=== PATIENT | male | born 1990 | race American Indian/Alaskan Native ===

== ENCOUNTER 2021-07-07 00:06 | Inpatient (IN) | payer OTHER, BC ==
[2021-07-07] MEDS ORDERED: SODIUM CHLORIDE 0.9% 1000 ML 1,000 ML IV ONE ×3 (00:32→06:03)
[2021-07-07] MEDS ORDERED: ACETAMINOPHEN 500 MG TAB PO ONE (00:59)
--- NOTE | 2021-07-07 01:03 | Emergency Department Report ---
ED General Adult HPI - General Chief complaint: Fever Stated complaint: VOMITING Time Seen by Provider: 07/07/21 00:58 Source: patient Mode of arrival: Ambulatory Limitations: No Limitations - History of Present Illness Initial comments: Patient is 31 years old male with no significant past medical history. Patient presented to the ER complaining of fever, body ache and vomiting for the last 2 to 3 days. Patient stated that she was seen at another hospital and diagnosed with infectious mononucleosis. Patient stated that he tested negative for Covid 3 days ago. Patient denied any chest pain or shortness of breath or cough. - Related Data Previous Rx's Medication Instructions Recorded Last Taken Type Azithromycin [Zithromax Z-KYLE] 250 mg PO DAILY 1 Days tab 07/07/21 Unknown Rx Ondansetron [Zofran Odt] 4 mg PO Q8HR PRN #14 tab.rapdis 07/07/21 Unknown Rx Allergies Allergy/AdvReac Type Severity Reaction Status Date / Time No Known Allergies Allergy Unverified 07/07/21 00:38 ED Review of Systems ROS: Stated complaint: VOMITING Other details as noted in HPI Comment: All other systems reviewed and negative Constitutional: chills, fever Respiratory: denies: cough, shortness of breath, SOB with exertion, SOB at rest Cardiovascular: denies: chest pain, palpitations Gastrointestinal: nausea, vomiting. denies: abdominal pain, diarrhea, constipation, hematemesis, melena, hematochezia Musculoskeletal: denies: back pain Neurological: denies: headache, weakness, numbness ED Past Medical Hx - Past Medical History Previous Medical History?: No - Surgical History Past Surgical History?: No - Medications Home Medications: Home Medications Medication Instructions Recorded Confirmed Last Taken Type Azithromycin [Zithromax Z-KYLE] 250 mg PO DAILY 1 Days tab 07/07/21 Unknown Rx Ondansetron [Zofran Odt] 4 mg PO Q8HR PRN #14 tab.rapdis 07/07/21 Unknown Rx ED Physical Exam - General Limitations: No Limitations General appearance: alert, in no apparent distress - Head Head exam: Present: atraumatic, normocephalic, normal inspection - Eye Eye exam: Present: normal appearance - ENT ENT exam: Present: mucous membranes dry - Neck Neck exam: Present: normal inspection, full ROM. Absent: tenderness, meningismus - Respiratory Respiratory exam: Present: normal lung sounds bilaterally - Cardiovascular Cardiovascular Exam: Present: tachycardia - GI/Abdominal GI/Abdominal exam: Present: soft, normal bowel sounds. Absent: distended, tenderness, guarding, rebound, rigid, organomegaly, mass, bruit, pulsatile mass, hernia - Extremities Exam Extremities exam: Present: normal inspection, full ROM, normal capillary refill. Absent: tenderness, pedal edema, joint swelling, calf tenderness - Back Exam Back exam: Present: normal inspection, full ROM. Absent: CVA tenderness (R), CVA tenderness (L) - Neurological Exam Neurological exam: Present: alert, oriented X3, CN II-XII intact - Psychiatric Psychiatric exam: Present: normal mood - Skin Skin exam: Present: warm, intact, normal color ED Course Vital Signs 07/07/21 07/07/21 07/07/21 00:17 01:23 01:51 Temperature 102.4 F H 101.2 F H 101.1 F H Pulse Rate 144 H 129 H 129 H Respiratory 18 31 H 25 H Rate Blood Pressure 131/75 Blood Pressure 127/73 114/86 [Right] O2 Sat by Pulse 96 97 97 Oximetry 07/07/21 07/07/21 07/07/21 02:16 03:19 05:06 Temperature 100.4 F H 99.1 F 100 F H Pulse Rate 127 H 127 H 128 H Respiratory 25 H 28 H 31 H Rate Blood Pressure Blood Pressure 118/70 103/81 122/71 [Right] O2 Sat by Pulse 100 99 98 Oximetry ED Medical Decision Making - Lab Data Result diagrams: 07/07/21 01:08 07/07/21 01:08 - EKG Data -: EKG Interpreted by Or EKG shows normal: sinus rhythm Rate: tachycardia - EKG Data Interpretation: no acute changes - Radiology Data Radiology results: report reviewed - Medical Decision Making Patient is 31 years old male with no significant past medical history. Patient presented to the ER complaining of fever, body ache and vomiting for the last 2 to 3 days. Patient stated that she was seen at another hospital and diagnosed with infectious mononucleosis. Patient stated that he tested negative for Covid 3 days ago. Patient denied any chest pain or shortness of breath or cough. Labs reviewed and showed slight elevated lactic acid. Patient received normal saline. Chest x-ray is unremarkable however CT abdomen and pelvis showed bilateral lower lobe groundglass appearance consistent with pneumonia most likely Covid. Oxygen saturation dropped to 91% with short walk. Patient respiratory rate is 35 breaths/min. Patient given Rocephin, Zithromax and Decadron. I discussed the patient with Dr. Ward, he agreed to admit the patient to medical service for further management. Critical Care Time: Yes Critical care time in (mins) excluding proc time.: 30 Critical care attestation.: If time is entered above; I have spent that time in minutes in the direct care of this critically ill patient, excluding procedure time. ED Disposition Clinical Impression: Fever, Bilateral pneumonia, Suspected COVID-19 virus infection, Acute respiratory failure with hypoxia Disposition: ADMITTED INPATIENT Is pt being admited?: Yes Condition: Stable Instructions: COVID-19, Community-Acquired Pneumonia, Adult, Bacterial Pneumonia (ED) Prescriptions: Azithromycin [Zithromax Z-KYLE] 250 mg PO DAILY 1 Days tab Ondansetron [Zofran Odt] 4 mg PO Q8HR PRN #14 tab.rapdis PRN Reason: Nausea And Vomiting Referrals: PRIMARY CARE, [Referring] - 3-5 Days
--- NOTE | 2021-07-07 01:22 | XRay Report ---
CHEST 2 VIEWS INDICATION / CLINICAL INFORMATION: fever sob. FINDINGS: SUPPORT DEVICES: None. HEART / MEDIASTINUM: No significant abnormality. LUNGS / PLEURA: No significant pulmonary or pleural abnormality. No pneumothorax. ADDITIONAL FINDINGS: No significant additional findings. IMPRESSION: 1. No acute findings. Signer Name: Lencho Bills MD Signed: 07/07/2021 1:17 AM Workstation Name: [id number]
[2021-07-07] MEDS ORDERED: IBUPROFEN 800 MG TAB PO ONE (01:29)
[2021-07-07 01:36] LABS: Hematocrit 30.9 % (35.5-45.6); Hemoglobin 10.8 gm/dl (11.8-15.2); Mean Corpuscular HGB Conc 35 % (32-34); Mean Corpuscular Volume 86 fl (84-94); Platelet Count 162 K/mm3 (140-440); Red Blood Count 3.58 M/mm3 (3.65-5.03); Red Cell Distribution Width 13.4 % (13.2-15.2)
[2021-07-07 01:46] LABS: Alanine Aminotransferase 148 units/L (7-56); Albumin 3.6 g/dL (3.9-5); BUN/Creatinine Ratio 17; Blood Urea Nitrogen 17 mg/dL (9-20); Calcium 8.4 mg/dL (8.4-10.2); Hemolysis Index 0
[2021-07-07 02:21] LABS: RBC Morphology Normal; Total Cells Counted 100
--- NOTE | 2021-07-07 05:02 | Cat Scan Report ---
CT ABDOMEN AND PELVIS WITH IV CONTRAST INDICATION: Bodyaches and fever with vomiting x 4 days.. COMPARISON: None available. TECHNIQUE: Axial CT images were obtained through the abdomen and pelvis after 100 mL IV contrast. All CT scans a t this location are performed using CT dose reduction for ALARA by means of automated exposure contro l. FINDINGS -- ABDOMEN: Lung Bases: Scattered groundglass densities throughout both lungs.. Liver: Fatty liver. Gallbladder: Normal. Bile Ducts: Normal. Pancreas: Normal. Spleen: Normal. Adrenals: Normal. Right Kidney and Proximal Ureter: Normal. Left Kidney and Proximal Ureter: Normal. Stomach and Bowel: Normal. Lymph Nodes: No significant adenopathy. Aorta: No significant abnormality. IVC: Normal. Additional Findings: None. FINDINGS -- PELVIS: Urinary Bladder and Distal Ureters: Normal. Reproductive Organs: No acute abnormality. Appendix: Normal. Bowel: There is some increased enhancement question mild thickening involving the cecum mucosa. Involving several loops of small bowel mucosa without obstruction.. Free Fluid: None. Lymph Nodes: No significant adenopathy. Additional Findings: Small fat-containing periumbilical hernia.. Skeletal System: No acute abnormality. IMPRESSION: 1. Groundglass densities within the lower lungs suspicious for infectious pneumonitis. 2. Mild enteritis of the proximal mid small bowel. No small bowel obstruction. 3. Mild increased prominence of the mucosa of the cecum which could be seen with early colitis. Signer Name: Lencho Bills MD Signed: 07/07/2021 4:58 AM Workstation Name: [id number]
[2021-07-07] MEDS ORDERED: cefTRIAXone/NS 1 GM/50 ML 1 GM/50 ML BAG IV ONE (06:03)
[2021-07-07] MEDS ORDERED: AZITHROMYCIN/NS 500 MG/250 ML 500 MG/250 ML BAG IV ONE (06:03)
[2021-07-07] MEDS ORDERED: dexAMETHasone 4 MG/ML VIAL IV ONE (06:03)
--- NOTE | 2021-07-07 09:06 | History and Physical Report ---
History of Present Illness Date of examination: 07/07/21 Date of admission: 07/07/21 06:02 Chief complaint: Fever nausea vomiting and generalized weakness last 3 days History of present illness: Patient is 31 years old male with no significant past medical history. Patient presented to the ER complaining of fever, body ache and vomiting for the last 2 to 3 days. Patient stated that she was seen at another hospital and diagnosed with infectious mononucleosis. Patient stated that he tested negative for Covid 3 days ago. Patient denied any chest pain or shortness of breath or cough. 31-year-old male patient with significant past medical history of diabetes kelly ellkb on Metformin presented to the emergency room with the complaints of fever generalized body aches, severe nausea and vomiting for the last 2 3 days, patient complains of intermittent fever for the last 3 days, denies shortness of breath or cough, denies chest pain, complains of mild weakness, reports that he was tested negative for Covid 3 days ago, however was told that he had infectious mononucleosis, but mono test was negative.In ER patient was noted to have temperature of 102.4 F, Patient was placed in isolation, Kong PCR test was sent, mono screen was negative. Chest x-ray; no acute abnormalities noted CT abdomen and pelvis; groundglass densities within the lower lung suspicion for infectious pneumonitis Mild enteritis of the proximal mid small bowel no small bowel obstruction Increased prominence of the mucosa of the cecum which could be seen with early colitis Past History Past Medical History: diabetes. denies: hypertension Past Surgical History: No surgical history Social history: denies: smoking, alcohol abuse, other Family history: no significant family history (Recreational drug use) Medications and Allergies Allergies Allergy/AdvReac Type Severity Reaction Status Date / Time No Known Allergies Allergy Unverified 07/07/21 00:38 Home Medications Medication Instructions Recorded Confirmed Last Taken Type Azithromycin [Zithromax Z-KYLE] 250 mg PO DAILY 1 Days tab 07/07/21 Unknown Rx Ondansetron [Zofran Odt] 4 mg PO Q8HR PRN #14 tab.rapdis 07/07/21 Unknown Rx Review of Systems Constitutional: fever, weakness, no weight loss, no weight gain Ears, nose, mouth and throat: no ear pain, no ear discharge Cardiovascular: no chest pain, no palpitations Respiratory: no cough, no shortness of breath, no dyspnea on exertion Gastrointestinal: abdominal pain, nausea, vomiting, no diarrhea Genitourinary Male: no dysuria, no hematuria Musculoskeletal: no myalgias, no arthritis Integumentary: no rash, no lesions Neurological: no seizures, no syncope, no tremors Psychiatric: no anxiety, no depression Endocrine: no cold intolerance, no heat intolerance Hematologic/Lymphatic: no easy bruising, no easy bleeding Allergic/Immunologic: no urticaria, no allergic rhinitis Exam - Constitutional Vitals: Temp Pulse Resp BP Pulse Ox 100 F H 133 H 32 H 112/74 95 07/07/21 05:06 07/07/21 07:05 07/07/21 07:05 07/07/21 07:05 07/07/21 07:05 General appearance: Present: mild distress, well-nourished - EENT Eyes: Present: PERRL, EOM intact - Neck Neck: Present: supple, normal ROM - Respiratory Respiratory effort: normal Respiratory: bilateral: diminished, rhonchi, negative: rales, wheezing - Cardiovascular Rhythm: regular Heart Sounds: Present: S1 & S2 - Extremities Extremities: no ischemia, No edema - Abdominal General gastrointestinal: Present: soft, tender (Vague tenderness, no guarding, no rigidity) - Integumentary Integumentary: Present: clear, warm - Musculoskeletal Musculoskeletal: strength equal bilaterally, generalized weakness - Psychiatric Psychiatric: appropriate mood/affect, cooperative - Neurologic Neurologic: moves all extremities Results - Labs CBC & Chem 7: 07/07/21 01:08 07/07/21 01:08 Labs: Abnormal lab results 07/07/21 07/07/21 07/07/21 Range/Units 01:08 01:08 01:08 RBC 3.58 L (3.65-5.03) M/mm3 Hgb 10.8 L (11.8-15.2) gm/dl Hct 30.9 L (35.5-45.6) % MCHC 35 H (32-34) % Seg Neuts % (Manual) 91.0 H (40.0-70.0) % Lymphocytes % (Manual) 3.0 L (13.4-35.0) % Lymphocytes # (Manual) 0.3 L (1.2-5.4) K/mm3 Sodium 128 L (137-145) mmol/L Chloride 91.8 L (98-107) mmol/L Carbon Dioxide 20 L (22-30) mmol/L Glucose 206 H (75-100) mg/dL Lactic Acid 2.30 H* (0.7-2.0) mmol/L Total Bilirubin 7.90 H (0.1-1.2) mg/dL AST 77 H (5-40) units/L ALT 148 H (7-56) units/L Alkaline Phosphatase 167 H (35-129) units/L Albumin 3.6 L (3.9-5) g/dL Assessment and Plan --Febrile illness; Antipyretics, blood and urine cultures, supportive care --PUI/high suspicion for COVID-19 Contact and droplet isolation [place] PCR requested Check inflammatory markers Consider ID consult if needed --Bilateral pneumonia/possible community-acquired Versus COVID-19 pneumonia Empiric antibiotics Levaquin Cultures, check procalcitonin --Early colitis; on CT abdomen and pelvis Empiric antibiotics with Levaquin, Flagyl Clear liquid diet advance as tolerated GI consult --Hyponatremia; Replenished with normal saline, closely monitor electrolytes Consider nephrology consult if needed --Transaminitis; Probably COVID-19 related Check hepatitis panel Consider GI consult --DVT prophylaxis; Subcu Lovenox We will closely monitor the patient and adjust management as needed Plan of care reviewed with the patient and his nurse
[2021-07-07] MEDS ORDERED: METOPROLOL TARTRATE 25 MG TAB PO ONE (09:58)
[2021-07-07] MEDS: FAMOTIDINE 20 MG/2 ML INJ IV SCH ×2 (10:09→22:45)
[2021-07-07] MEDS: metroNIDAZOLE/NS 500 MG/100 ML 500 MG/100 ML BAG IV SCH ×2 (11:07→22:45)
--- NOTE | 2021-07-07 11:49 | Electrocardiograph Report ---
[facility] Test Date: 2021-07-07 Test Time: 02:31:45 Pat Name: MAYNOR RIBEIRO Department: Room: [facility] Gender: M Paper Twister: LIZA : 1990 Requested By: WESLEY CUEVAS Order Number: [id number] Reading MD: Lavelle Seaman Measurements Intervals [place] Rate: 128 P: 70 CO: 131 QRS: 34 QRSD: 87 T: 19 QT: 307 QTc: 447 Interpretive Statements Sinus tachycardia Probable left atrial enlargement No previous ECG available for comparison Electronically Signed On 07-07-2021 11:48:38 EDT by Lavelle Seaman
[2021-07-07 13:33] LABS: Hepatitis C Virus Antibody Non-Reactive (NonReactive)
[2021-07-07 14:11] LABS: Hepatitis B Surface Antigen Nonreactive (Negative)
[2021-07-07] MEDS: ENOXAPARIN 40 MG/0.4 ML INJ SUB-Q SCH (22:57)
[2021-07-08] MEDS: ACETAMINOPHEN 325 MG TAB PO PRN ×2 (00:18→18:11)
[2021-07-08] MEDS: SODIUM CHLORIDE 0.9% 1000 ML 1,000 ML IV SCH ×3 (00:18→22:03)
[2021-07-08] MEDS: IBUPROFEN 400 MG TAB PO PRN ×3 (00:54→23:37)
[2021-07-08] MEDS: metroNIDAZOLE/NS 500 MG/100 ML 500 MG/100 ML BAG IV SCH ×3 (03:16→18:05)
--- NOTE | 2021-07-08 07:43 | Gastroenterology Consultation ---
History of Present Illness - Reason for Consult Consult date: 07/08/[address] scan of the gastrointestinal tract, elevated LFTs Requesting physician: KRZYSZTOF MOREIRA - History of Present Illness This is a pleasant 31-year-old gentleman with fevers chills nausea malaise for the last 4 days He reports feeling sick, with nausea malaise fevers chills Denies diarrhea Minimal abdominal pain No history of colitis CT scan results noted Patient was just seen at [facility] on July 05, chest x-ray negative. Labs including strep test Monospot, Covid test lipase and blood cultures all normal. LDH, CRP, ferritin, procalcitonin all elevated. CMP as below. Mild anemia otherwise CBC normal. Ref Range & Units 07/05/21 1324 Sodium 136 - 145 mmol/L 129Low Potassium 3.6 - 5.0 mmol/L 4.2 Chloride 98 - 107 mmol/L 92Low CO2 22 - 30 mmol/L 24 Glucose 74 - 106 mg/dL 185High BUN 7 - 18 mg/dL 11 Creatinine 0.30 - 1.00 mg/dL 0.99 Calcium 8.6 - 10.2 mg/dL 8.8 Total Protein 6.2 - 8.2 g/dL 7.1 Albumin 3.4 - 4.8 g/dL 3.9 ALT 14 - 54 U/L 168High AST 15 - 41 U/L 120High Alkaline Phosphatase 40 - 129 U/L 139High Total Bilirubin 0.1 - 1.0 mg/dL 3.8High Anion Gap 10 - 20 17 BUN/Creatinine Ratio 12 - 20 11Low GFR MDRD Af Amer >=60 mL/min/1.73sq m >60 GFR MDRD Non Af Amer >=60 mL/min/1.73sq m >60 Albumin/Globulin Ratio 1.1 - 2.2 1.2 Obtained/updated/reviewed patient's current medications Past History Past Medical History: diabetes. denies: hypertension Past Surgical History: No surgical history Social history: denies: smoking, alcohol abuse, other Family history: no significant family history (Recreational drug use) Medications and Allergies Allergies Allergy/AdvReac Type Severity Reaction Status Date / Time No Known Allergies Allergy Verified 07/07/21 17:12 Home Medications Medication Instructions Recorded Confirmed Last Taken Type Azithromycin [Zithromax Z-KYLE] 250 mg PO DAILY 1 Days tab 07/07/21 Unknown Rx Ondansetron [Zofran Odt] 4 mg PO Q8HR PRN #14 tab.rapdis 07/07/21 Unknown Rx Active Meds: Active Medications Acetaminophen (Acetaminophen 325 Mg Tab) 650 mg PO Q4H PRN PRN Reason: Pain, Mild (1-3) Last Admin: 07/08/21 00:18 Dose: 650 mg Documented by: Enoxaparin Sodium (Enoxaparin 40 Mg/0.4 Ml Inj) 40 mg SUB-Q QDAY@2200 JOHANNY; Protocol Last Admin: 07/07/21 22:57 Dose: 40 mg Documented by: Famotidine (Famotidine 20 Mg/2 Ml Inj) 20 mg IV BID JOHANNY Last Admin: 07/07/21 22:45 Dose: 20 mg Documented by: Sodium Chloride (Nacl 0.9% 1000 Ml) 1,000 mls @ 100 mls/hr IV DIRECT JOHANNY Last Admin: 07/08/21 05:54 Dose: 100 mls/hr Documented by: Levofloxacin/Dextrose (Levaquin 750mg/150ml) 750 mg in 150 mls @ 100 mls/hr IV Q24H JOHANNY; Protocol Last Infusion: 07/08/21 00:04 Dose: Infused Documented by: Metronidazole (Flagyl 500 Mg/100 Ml) 500 mg in 100 mls @ 100 mls/hr IV Q8H JOHANNY; Protocol Last Infusion: 07/08/21 05:17 Dose: Infused Documented by: Ibuprofen (Ibuprofen 400 Mg Tab) 400 mg PO Q6H PRN PRN Reason: Pain, Mild (1-3) Last Admin: 07/08/21 00:54 Dose: 400 mg Documented by: Review of Systems - Review of Systems All systems: negative (10 Systems reviewed and negative except as mentioned above in the history of present illness) Exam - Constitutional Vital Signs: Temp Pulse Resp BP Pulse Ox 100 F H 119 H 41 H 130/74 97 07/07/21 05:06 07/07/21 22:31 07/07/21 22:31 07/07/21 16:01 07/07/21 23:42 General appearance: other (Uncomfortable appearing) - EENT Eyes: EOM intact ENT: hearing intact - Neck Neck: supple - Respiratory Respiratory effort: normal - Cardiovascular Rhythm: other (no murmur appreciated) - Gastrointestinal General gastrointestinal: Present: soft, normal bowel sounds - Integumentary Integumentary: Present: warm - Musculoskeletal Musculoskeletal: normal - Neurologic Neurological: alert and oriented x3 - Psychiatric Psychiatric: appropriate mood/affect - Labs CBC & Chem 7: 07/07/21 01:08 07/08/21 06:20 Lab Results: Laboratory Results - last 24 hr 07/07/21 07/07/21 09:44 Unknown Coronavirus (PCR) Negative Hepatitis A IgM Ab Non-reactive Hep Bs Antigen Nonreactive Hep B Core IgM Ab Non-reactive Hepatitis C Antibody Non-reactive Assessment and Plan Likely acute enterocolitis with viral/bacterial infection secondary to pna highest on the differential diagnosis Primary GI issue such as IBD low on the differential Regarding elevated liver enzymes and bilirubin, unclear etiology but with acute infection that is higher in the differential diagnosis for the source. Acute hepatitis panel is negative. I ordered PT/INR to assess for hepatic synthetic f unction as well as fractionation of the bilirubin and LDH and haptoglobin to assess if hemolysis could be contributing Continue supportive care and empiric antibiotics - Patient Problems (1) Abnormal CT of the abdomen Current Visit: Yes Status: Acute (2) Colitis Current Visit: Yes Status: Acute (3) Duodenitis Current Visit: Yes Status: Acute (4) Transaminitis Current Visit: Yes Status: Acute (5) Hyperbilirubinemia Current Visit: Yes Status: Acute (6) Fever Current Visit: Yes Status: Acute
[2021-07-08 07:55] LABS: BUN/Creatinine Ratio 20; Blood Urea Nitrogen 24 mg/dL (9-20); Calcium 7.7 mg/dL (8.4-10.2); Hemolysis Index 1
[2021-07-08] MEDS: FAMOTIDINE 20 MG/2 ML INJ IV SCH ×2 (09:37→21:52)
[2021-07-08 11:30] LABS: Bilirubin,Direct 2.3 mg/dL (0-0.2)
[2021-07-08 13:31] LABS: INR 1.03 (0.87-1.13)
--- NOTE | 2021-07-08 14:47 | Progress Note ---
Assessment and Plan Assessment and plan: --Febrile illness; Persistent fevers [place] PCR negative [place] screen negative ID consult --PUI/high suspicion for COVID-19 COVID-19 test negative May DC isolation Check inflammatory markers Consider ID consult if needed --Bilateral pneumonia/possible community-acquired Empiric antibiotics Levaquin Cultures, check procalcitonin --Early colitis; on CT abdomen and pelvis Empiric antibiotics with Levaquin, Flagyl Clear liquid diet advance as tolerated GI evaluation noted --Hyponatremia; Replenished with normal saline, closely monitor electrolytes Consider nephrology consult if needed --Transaminitis; Check hepatitis negative GI evaluation recommendation noted and appreciated --DVT prophylaxis; Subcu Lovenox We will closely monitor the patient and adjust management as needed GI evaluation recommendation noted and appreciated Plan of care reviewed with the patient and his nurse History Interval history: I have seen and examined the patient at the bedside Patient's chart and medications reviewed Patient continues to have intermittent abdominal pain Febrile T-max 102 F last 24 hours Hospitalist Physical - Constitutional Vitals: Temp Pulse Resp BP Pulse Ox 100 F H 119 H 20 130/74 97 07/07/21 05:06 07/07/21 22:31 07/08/21 11:21 07/07/21 16:01 07/08/21 11:00 General appearance: Present: mild distress, well-nourished, other (Febrile) - EENT Eyes: Present: PERRL, EOM intact - Neck Neck: Present: supple, normal ROM - Respiratory Respiratory effort: normal Respiratory: bilateral: diminished, rhonchi, negative: rales, wheezing - Cardiovascular Rhythm: regular Heart Sounds: Present: S1 & S2 (Tachycardia) - Extremities Extremities: no ischemia, No edema - Abdominal General gastrointestinal: soft, non-tender, non-distended, normal bowel sounds - Integumentary Integumentary: Present: clear, warm - Psychiatric Psychiatric: appropriate mood/affect, cooperative - Neurologic Neurologic: CNII-XII intact, moves all extremities Results - Labs CBC & Chem 7: 07/07/21 01:08 07/08/21 06:20 Labs: Laboratory Last Values WBC 8.5 K/mm3 (4.5-11.0) 07/07/21 01:08 RBC 3.58 M/mm3 (3.65-5.03) L 07/07/21 01:08 Hgb 10.8 gm/dl (11.8-15.2) L 07/07/21 01:08 Hct 30.9 % (35.5-45.6) L 07/07/21 01:08 MCV 86 fl (84-94) 07/07/21 01:08 MCH 30 pg (28-32) 07/07/21 01:08 MCHC 35 % (32-34) H 07/07/21 01:08 RDW 13.4 % (13.2-15.2) 07/07/21 01:08 Plt Count 162 K/mm3 (140-440) 07/07/21 01:08 Add Manual Diff Complete 07/07/21 01:08 Total Counted 100 07/07/21 01:08 Seg Neuts % (Manual) 91.0 % (40.0-70.0) H 07/07/21 01:08 Lymphocytes % (Manual) 3.0 % (13.4-35.0) L 07/07/21 01:08 Monocytes % (Manual) 2.0 % (0.0-7.3) 07/07/21 01:08 Eosinophils % (Manual) 3.0 % (0.0-4.3) 07/07/21 01:08 Basophils % (Manual) 1.0 % (0.0-1.8) 07/07/21 01:08 Nucleated RBC % Not Reportable 07/07/21 01:08 Seg Neutrophils # Man 7.7 K/mm3 (1.8-7.7) 07/07/21 01:08 Band Neutrophils # 0.0 K/mm3 07/07/21 01:08 Lymphocytes # (Manual) 0.3 K/mm3 (1.2-5.4) L 07/07/21 01:08 Abs React Lymphs (Man) 0.0 K/mm3 07/07/21 01:08 Monocytes # (Manual) 0.2 K/mm3 (0.0-0.8) 07/07/21 01:08 Eosinophils # (Manual) 0.3 K/mm3 (0.0-0.4) 07/07/21 01:08 Basophils # (Manual) 0.1 K/mm3 (0.0-0.1) 07/07/21 01:08 Metamyelocytes # 0.0 K/mm3 07/07/21 01:08 Myelocytes # 0.0 K/mm3 07/07/21 01:08 Promyelocytes # 0.0 K/mm3 07/07/21 01:08 Blast Cells # 0.0 K/mm3 07/07/21 01:08 WBC Morphology Not Reportable 07/07/21 01:08 Hypersegmented Neuts Not Reportable 07/07/21 01:08 Hyposegmented Neuts Not Reportable 07/07/21 01:08 Hypogranular Neuts Not Reportable 07/07/21 01:08 Smudge Cells Not Reportable 07/07/21 01:08 Toxic Granulation Not Reportable 07/07/21 01:08 Toxic Vacuolation Not Reportable 07/07/21 01:08 Dohle Bodies Not Reportable 07/07/21 01:08 Pelger-Huet Anomaly Not Reportable 07/07/21 01:08 Deidre Rods Not Reportable 07/07/21 01:08 Platelet Estimate Not Reportable 07/07/21 01:08 Clumped Platelets Not Reportable 07/07/21 01:08 Plt Clumps, EDTA Not Reportable 07/07/21 01:08 Large Platelets Not Reportable 07/07/21 01:08 Giant Platelets Not Reportable 07/07/21 01:08 Platelet Satelliting Not Reportable 07/07/21 01:08 Plt Morphology Comment Not Reportable 07/07/21 01:08 RBC Morphology Normal 07/07/21 01:08 Dimorphic RBCs Not Reportable 07/07/21 01:08 Polychromasia Not Reportable 07/07/21 01:08 Hypochromasia Not Reportable 07/07/21 01:08 Poikilocytosis Not Reportable 07/07/21 01:08 Anisocytosis Not Reportable 07/07/21 01:08 Microcytosis Not Reportable 07/07/21 01:08 Macrocytosis Not Reportable 07/07/21 01:08 Spherocytes Not Reportable 07/07/21 01:08 Pappenheimer Bodies Not Reportable 07/07/21 01:08 Sickle Cells Not Reportable 07/07/21 01:08 Target Cells Not Reportable 07/07/21 01:08 Tear Drop Cells Not Reportable 07/07/21 01:08 Ovalocytes Not Reportable 07/07/21 01:08 Helmet Cells Not Reportable 07/07/21 01:08 Max-Bayard Bodies Not Reportable 07/07/21 01:08 [place] Rings Not Reportable 07/07/21 01:08 [place] Cells Not Reportable 07/07/21 01:08 Bite Cells Not Reportable 07/07/21 01:08 Crenated Cell Not Reportable 07/07/21 01:08 Elliptocytes Not Reportable 07/07/21 01:08 Acanthocytes (Spur) Not Reportable 07/07/21 01:08 Rouleaux Not Reportable 07/07/21 01:08 Hemoglobin C Crystals Not Reportable 07/07/21 01:08 Schistocytes Not Reportable 07/07/21 01:08 Malaria parasites Not Reportable 07/07/21 01:08 Pradeep Bodies Not Reportable 07/07/21 01:08 Hem Pathologist Commnt No 07/07/21 01:08 PT 14.0 Sec. (12.2-14.9) 07/08/21 10:31 INR 1.03 (0.87-1.13) 07/08/21 10:31 Sodium 131 mmol/L (137-145) L 07/08/21 06:20 Potassium 4.2 mmol/L (3.6-5.0) 07/08/21 06:20 Chloride 97.8 mmol/L (98-107) L 07/08/21 06:20 Carbon Dioxide 18 mmol/L (22-30) L 07/08/21 06:20 Anion Gap 19 mmol/L 07/08/21 06:20 BUN 24 mg/dL (9-20) H 07/08/21 06:20 Creatinine 1.2 mg/dL (0.8-1.3) 07/08/21 06:20 Estimated GFR > 60 ml/min 07/08/21 06:20 BUN/Creatinine Ratio 20 % 07/08/21 06:20 Glucose 263 mg/dL (75-100) H 07/08/21 06:20 Lactic Acid 1.80 mmol/L (0.7-2.0) 07/07/21 05:29 Calcium 7.7 mg/dL (8.4-10.2) L 07/08/21 06:20 Magnesium 2.20 mg/dL (1.7-2.3) 07/08/21 06:20 Total Bilirubin 3.30 mg/dL (0.1-1.2) H 07/08/21 10:31 Direct Bilirubin 2.3 mg/dL (0-0.2) H 07/08/21 10:31 Indirect Bilirubin 1.0 mg/dL 07/08/21 10:31 AST 77 units/L (5-40) H 07/07/21 01:08 ALT 148 units/L (7-56) H 07/07/21 01:08 Alkaline Phosphatase 167 units/L (35-129) H 07/07/21 01:08 Lactate Dehydrogenase 337 units/L (91-180) H 07/08/21 10:31 Total Protein 7.2 g/dL (6.3-8.2) 07/07/21 01:08 Albumin 3.6 g/dL (3.9-5) L 07/07/21 01:08 Albumin/Globulin Ratio 1.0 % 07/07/21 01:08 Lipase 32 units/L (13-60) 07/07/21 01:08 Coronavirus (PCR) Negative (Negative) 07/07/21 Unknown Hepatitis A IgM Ab Non-reactive (NonReactive) 07/07/21 09:44 Hep Bs Antigen Nonreactive (Negative) 07/07/21 09:44 Hep B Core IgM Ab Non-reactive (NonReactive) 07/07/21 09:44 Hepatitis C Antibody Non-reactive (NonReactive) 07/07/21 09:44 Monoscreen Negative (Negative) 07/07/21 01:08 Thapa/IV: Voiding Method Toilet Active Medications - Current Medications Current Medications: Generic Name Dose Route Start Last Admin Trade Name Freq PRN Reason Stop Dose Admin Acetaminophen 650 mg 07/07/21 10:00 07/08/21 00:18 Acetaminophen 325 Mg Tab PO 650 mg Q4H PRN Administration Pain, Mild (1-3) Enoxaparin Sodium 40 mg 07/07/21 22:00 07/07/21 22:57 Enoxaparin 40 Mg/0.4 Ml Inj SUB-Q 40 mg QDAY@2200 JOHANNY Administration Protocol Famotidine 20 mg 07/07/21 10:00 07/08/21 09:37 Famotidine 20 Mg/2 Ml Inj IV 20 mg BID JOHANNY Administration Sodium Chloride 1,000 mls @ 100 mls/hr 07/07/21 10:00 07/08/21 05:54 Nacl 0.9% 1000 Ml IV 100 mls/hr DIRECT JOHANNY Administration Levofloxacin/Dextrose 750 mg in 150 mls @ 100 mls/hr 07/07/21 11:00 07/08/21 10:15 Levaquin 750mg/150ml IV 100 mls/hr Q24H JOHANNY Administration Protocol Metronidazole 500 mg in 100 mls @ 100 mls/hr 07/07/21 11:00 07/08/21 10:18 Flagyl 500 Mg/100 Ml IV 100 mls/hr Q8H JOHANNY Administration Protocol Ibuprofen 400 mg 07/08/21 00:27 07/08/21 11:21 Ibuprofen 400 Mg Tab PO 400 mg Q6H PRN Administration Pain, Mild (1-3)
[2021-07-08 18:25] LABS: Bilirubin,Urine NEG (Negative); Blood,Urine SM (Negative); Color,Urine Amber (Yellow); Mucus,Urine FEW /HPF
[2021-07-08 18:41] LABS: Albumin 3.1 g/dL (3.9-5); Bilirubin,Direct 2.7 mg/dL (0-0.2)
[2021-07-08] MEDS: ENOXAPARIN 40 MG/0.4 ML INJ SUB-Q SCH (21:49)
[2021-07-08] MEDS: INSULIN LISPRO 100 UNIT/ML SUB-Q SCH (21:52)
[2021-07-09] MEDS: metroNIDAZOLE/NS 500 MG/100 ML 500 MG/100 ML BAG IV SCH ×2 (03:59→11:04)
[2021-07-09] MEDS: ACETAMINOPHEN 325 MG TAB PO PRN (06:00)
--- NOTE | 2021-07-09 06:37 | Gastroenterology Progress Note ---
Assessment and Plan Likely acute enterocolitis with viral/bacterial infection secondary to pna highest on the differential diagnosis with the infection causing the elevated LFT and DILI also on ddx for elevated lft, no signs of hemolysis on eval. Overall LFT stable and liver function (INR) normal Primary GI issue such as IBD low on the differential Overall patient improving clinically I changed tylenol dose to limit to 2gm/day instead of 4 gm / day given elevated LFT GI will sign off, patient should followup in office in 2-4 weeks to repeat LFT and ensure complete normalization Continue supportive care and empiric antibiotics - Patient Problems (1) Abnormal CT of the abdomen Current Visit: Yes Status: Acute (2) Colitis Current Visit: Yes Status: Acute (3) Duodenitis Current Visit: Yes Status: Acute (4) Transaminitis Current Visit: Yes Status: Acute (5) Hyperbilirubinemia Current Visit: Yes Status: Acute (6) Fever Current Visit: Yes Status: Acute Subjective Date of service: 07/09/21 Principal diagnosis: fever, elevated lft Interval history: Pt reports moderate improvement today, with decrease malaise/fevers/chills (no objective fever since yesterday), no abd pain no diarrhea Objective - Constitutional Vitals: Temp Pulse Resp BP Pulse Ox 99.7 F H 115 H 24 104/61 98 07/08/21 23:41 07/08/21 23:41 07/08/21 23:41 07/08/21 23:41 07/08/21 23:41 General appearance: no acute distress - Respiratory Respiratory effort: normal - Gastrointestinal General gastrointestinal: Present: soft, tender - Neurologic Neurological: alert and oriented x3 - Labs CBC & Chem 7: 07/09/21 07:03 07/09/21 07:03 Labs: Laboratory Results - last 24 hr 07/08/21 07/08/21 07/08/21 06:20 10:31 10:31 PT 14.0 INR 1.03 Sodium 131 L Potassium 4.2 Chloride 97.8 L Carbon Dioxide 18 L Anion Gap 19 BUN 24 H Creatinine 1.2 Estimated GFR > 60 BUN/Creatinine Ratio 20 Glucose 263 H POC Glucose Calcium 7.7 L Magnesium 2.20 Total Bilirubin 3.30 H Direct Bilirubin 2.3 H Indirect Bilirubin 1.0 AST ALT Alkaline Phosphatase Lactate Dehydrogenase 337 H Total Protein Albumin Albumin/Globulin Ratio Urine Color Urine Turbidity Urine pH Ur Specific [place] Urine Protein Urine Glucose (UA) Urine Ketones Urine Blood Urine Nitrite Urine Bilirubin Urine Urobilinogen Ur Leukocyte Esterase Urine WBC (Auto) Urine RBC (Auto) U Epithel Cells (Auto) Urine Mucus Urine Yeast (Budding) 07/08/21 07/08/21 07/08/21 18:02 18:14 21:04 PT INR Sodium Potassium Chloride Carbon Dioxide Anion Gap BUN Creatinine Estimated GFR BUN/Creatinine Ratio Glucose POC Glucose 470 H 435 H Calcium Magnesium Total Bilirubin 3.60 H Direct Bilirubin 2.7 H Indirect Bilirubin 0.9 AST 79 H ALT 134 H Alkaline Phosphatase 148 H Lactate Dehydrogenase Total Protein 6.1 L Albumin 3.1 L Albumin/Globulin Ratio 1.0 Urine Color Urine Turbidity Urine pH Ur Specific [place] Urine Protein Urine Glucose (UA) Urine Ketones Urine Blood Urine Nitrite Urine Bilirubin Urine Urobilinogen Ur Leukocyte Esterase Urine WBC (Auto) Urine RBC (Auto) U Epithel Cells (Auto) Urine Mucus Urine Yeast (Budding) 07/08/21 07/09/21 Unknown 05:21 PT INR Sodium Potassium Chloride Carbon Dioxide Anion Gap BUN Creatinine Estimated GFR BUN/Creatinine Ratio Glucose POC Glucose 271 H Calcium Magnesium Total Bilirubin Direct Bilirubin Indirect Bilirubin AST ALT Alkaline Phosphatase Lactate Dehydrogenase Total Protein Albumin Albumin/Globulin Ratio Urine Color Josephine Urine Turbidity Slightly-cloudy Urine pH 5.0 Ur Specific [place] 1.022 Urine Protein 100 mg/dl Urine Glucose (UA) >=500 Urine Ketones Neg Urine Blood Sm Urine Nitrite Neg Urine Bilirubin Neg Urine Urobilinogen 2.0 Ur Leukocyte Esterase Neg Urine WBC (Auto) 14.0 H Urine RBC (Auto) 4.0 U Epithel Cells (Auto) 1.0 Urine Mucus Few Urine Yeast (Budding) 1+
[2021-07-09 07:13] LABS: Hematocrit 28.9 % (35.5-45.6); Hemoglobin 9.8 gm/dl (11.8-15.2); Mean Corpuscular HGB Conc 34 % (32-34); Mean Corpuscular Volume 88 fl (84-94); Platelet Count 219 K/mm3 (140-440); Red Blood Count 3.31 M/mm3 (3.65-5.03); Red Cell Distribution Width 14.1 % (13.2-15.2)
[2021-07-09 07:34] LABS: Alanine Aminotransferase 142 units/L (7-56); Albumin 2.8 g/dL (3.9-5); BUN/Creatinine Ratio 21; Blood Urea Nitrogen 31 mg/dL (9-20); Calcium 7.8 mg/dL (8.4-10.2); Hemolysis Index 0
[2021-07-09] MEDS: INSULIN LISPRO 100 UNIT/ML SUB-Q SCH ×2 (08:23→11:04)
[2021-07-09] MEDS ORDERED: ACETAMINOPHEN 325 MG TAB PO PRN (08:36)
[2021-07-09] MEDS: FAMOTIDINE 20 MG/2 ML INJ IV SCH (09:12)
--- NOTE | 2021-07-09 09:55 | Discharge Summary ---
Providers - Providers Date of Admission: 07/07/21 06:02 Date of discharge: 07/09/21 Attending physician: [email or web address] MOREIRA 07/07/21 17:20 Consult to Physician [CONS] Routine Comment: Consulting Provider: JEAN-PAUL SANCHEZ Physician Instructions: Reason For Exam: Early colitis/nausea vomiting fever/Covid negative 07/08/21 14:56 Consult to Physician [CONS] Routine Comment: Consulting Provider: NABEEL HILL Physician Instructions: Reason For Exam: Persistent fevers/Covid negative/colitis/pneumonia Primary care physician: RASHAWN BATISTA MD Hospitalization Reason for admission: Nausea/vomiting and abdominal pain/colitis/PUI. Condition: Stable Pertinent studies: Chest x-ray no acute abnormalities noted CT abdomen and pelvis groundglass densities within the lower lungs suspicion for infectious pneumonitis Mild enteritis proximal mid small bowel no small bowel obstruction Mild increased prominence of the mucosa of the cecum which could be seen with early colitis Hospital course: 31-year-old male patient with no significant past medical history was admitted through emergency room with fever nausea vomiting and generalized weakness of 3 days duration patient was high suspicion for COVID-19 placed on droplet and contact isolation subsequently underwent valenzuela PCR test which was negative for COVID-19 infection, patient had groundglass densities in the lowers lung [place] suspicion for pneumonitis, managed with empiric antibiotics Rocephin and Zithromax, patient has possible early colitis on his abdominal CT started on empiric antibiotics Levaquin and Flagyl, evaluated by GI who did not recommend any endoscopy however advised to continue oral antibiotics and recommended follow-up as outpatient for further evaluation management if needed. Patient symptoms slowly but gradually improved today he is comfortable no new complaints vital signs stable and physical examination prior to discharge is unremarkable Patient is hemodynamically and clinically stable at discharge Discharge diagnosis: --Febrile illness; Persistent fevers, [place] PCR negative [place] screen negative, Resolved, probably fevers due to pneumonitis and early colitis --PUI/high suspicion for COVID-19 COVID-19 test negative May DC isolation --Bilateral pneumonia/possible community-acquired Empiric antibiotics Levaquin Cultures, negative to date --Early colitis; on CT abdomen and pelvis Empiric antibiotics with Levaquin, Flagyl Clear liquid diet advance as tolerated GI evaluation noted --Hyponatremia; resolved Replenished with normal saline, closely monitor electrolytes Consider nephrology consult if needed --Transaminitis; trending down Check hepatitis negative GI evaluation recommendation noted and appreciated. Patient is hemodynamically and clinically stable at discharge Cleared by GI for discharge and follow-up as outpatient for further evaluation if needed Disposition: 01 HOME / SELF CARE / HOMELESS Final Discharge Diagnosis (Prints w/discharge instructions): Fever. COVID-19 negative. Bilateral pneumonia. Early colitis. Transaminitis Time spent for discharge: 35 min Core Measure Documentation - Palliative Care Palliative Care/ Comfort Measures: Not Applicable - Core Measures Any of the following diagnoses?: none Exam - Constitutional Vitals: Temp Pulse Resp BP Pulse Ox 98.1 F 114 H 22 96/65 99 07/09/21 05:22 07/09/21 05:22 07/09/21 05:22 07/09/21 05:22 07/09/21 05:22 General appearance: Present: no acute distress, well-nourished - EENT Eyes: Present: PERRL, EOM intact - Neck Neck: Present: supple, normal ROM - Respiratory Respiratory effort: normal Respiratory: bilateral: diminished, negative: rales, rhonchi, wheezing - Cardiovascular Rhythm: regular Heart Sounds: Present: S1 & S2 - Extremities Extremities: no ischemia, No edema - Abdominal General gastrointestinal: Present: soft, non-tender, non-distended, normal bowel sounds - Integumentary Integumentary: Present: clear, warm - Musculoskeletal Musculoskeletal: strength equal bilaterally, generalized weakness - Psychiatric Psychiatric: appropriate mood/affect, cooperative - Neurologic Neurologic: moves all extremities Plan Activity: no restrictions Diet: other (Soft diet advance as tolerated) Additional Instructions: Advised soft diet advance as tolerated. Advised to see GI in 1 week. If you have worsening symptoms contact MD or go to the nearest emergency room as needed. Advised to days work excuse on 07/10/2021 and 07/11/2021 Follow up with: PRIMARY CARE, [Referring] - 3-5 Days JEAN-PAUL SANCHEZ MD [Staff Physician] - 7 Days Forms: Work/School Release Form Prescriptions: metroNIDAZOLE [Flagyl] 500 mg PO Q8HR #21 tablet levoFLOXacin [Levaquin] 750 mg PO QDAY #7 tablet oxyCODONE /ACETAMINOPHEN [Percocet 5/325] 1 tab PO BID PRN #14 tablet PRN Reason: Pain , Severe (7-10) Azithromycin [Zithromax Z-KYLE] 250 mg PO DAILY 1 Days tab
[2021-07-09 11:08] LABS: Band Neutrophils # (Manual) 5.3 K/mm3; Myelocytes # (Manual) 0.3 K/mm3; Total Cells Counted 100
[2021-07-09 11:09] LABS: Dohle Bodies 1+; Toxic Granulation 1+
[2021-07-09 11:10] LABS: Platelet Estimate Consistent w Auto
[2021-07-09 13:29] VITALS: BP 108/74
== END 2021-07-09 15:15 | disposition home or self-care (01) | DRG 194 ==
LOC: ED 00:06 → 3A 06:02
PROVIDERS: ADMIT Hospitalist; ATTEND Internal Medicine
DX: J18.9 Pneumonia, unspecified organism (principal); E87.1 Hypo-osmolality and hyponatremia; K52.9 Noninfective gastroenteritis and colitis, unspecified; Z20.822 Contact with and (suspected) exposure to COVID-19; K29.80 Duodenitis without bleeding
CPT/HCPCS: 36415; 71046; 74177; 80048; 80053; 80074; 80076; 81001; 82140; 82247; 82248; 82962; 83010; 83615; 83690; 83735; 84145; 85007; 85025; 85610; 86308; 87040; 87086; 93005; G0378; J0456; J0696; J1100; J1650; J1815; J1956; J7030; Q9967; U0003